=== PATIENT | female | born 1985 | race Caucasian/White ===

== ENCOUNTER 2016-04-26 16:12 | Emergency (ER) | payer OTHER, BC ==
[2016-04-26] MEDS ORDERED: Silver Sulfadiazine 1% Crm 50 GM Tube TOP ONE (16:29)
[2016-04-26 16:32] VITALS: BP 117/71
--- NOTE | 2016-04-26 16:32 | EDM.PDOC ---
ED HPI BURN/SMOKE INHALATION - General Chief Complaint: Burn Stated Complaint: SMITH TO FINGERS / WORKERS COMP Time Seen by Provider: 04/26/16 16:25 Source of Information: Reports: Patient History Limitations: Reports: No limitations - History of Present Illness INITIAL COMMENTS - FREE TEXT/NARRATIVE: This 30 yo female patient reports to the ED with smith to her right and left hands. The patient reports she was working with a hot glue gun when the object she was gluing let go and got glued to her hand. The patient attempted to get into the clinic, but was advised to come to the ED. Symptom Onset Date: 04/26/16 Timing/Duration: Reports: Constant Location, General: Reports: upper extremity, left, upper extremity, right Place of Occurrence: work Quality: Reports: Ache, Burning Severity: mild Improves with: Reports: None Worsens with: Reports: None Context, Burn/Smoke Inhalation: Reports: other (hot glue) Smoke Inhalation: Reports: none Associated Symptoms: Reports: no other symptoms - Related Data Allergies/ADRs: Allergies Allergy/AdvReac Type Severity Reaction Status Date / Time No Known Allergies Allergy Verified 04/18/15 15:07 Home Meds: Home Meds Loratadine [Claritin] 10 mg PO DAILY PRN 08/14/13 [History] SUMAtriptan Succinate [Imitrex] 25 mg PO ASDIRECTED PRN 08/14/13 [History] Ibuprofen [Motrin] 800 mg PO Q8H PRN #30 tablet 04/21/15 [Rx] Norethindrone [April] 1 tab PO ASDIRECTED 04/26/16 [History] Past Medical History HEENT History: Reports: Impaired vision Respiratory History: Reports: Asthma 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 ED EXAM, BURN/SMOKE INHALATION - Physical Exam Exam: See Below Exam Limited By: No limitations General Appearance: alert, WD/WN, mild distress Eye Exam: bilateral eye: EOMI, normal inspection, PERRL Ears (Abbreviated): normal external exam, normal canal, hearing grossly normal, normal TMs Nose: left anterior: normal inspection, normal mucosa, no blood, left posterior : normal inspection, normal mucosa, no blood, right anterior: normal inspection , normal mucosa, no blood, right posterior: normal inspection, normal mucosa, no blood Mouth/Throat: No symptoms reported Head: no symptoms Neck: no symptoms Respiratory: no respiratory distress, lungs clear, normal breath sounds, no accessory muscle use, chest non-tender Cardiovascular: normal peripheral pulses, regular rate, rhythm, no edema, no gallop, no JVD, no murmur, no rub GI/Abdominal: normal bowel sounds, soft, non tender, no organomegaly, no distention, no abnormal bruit, no mass (Female) Exam: Deferred Rectal Exam: Deferred Back Exam: normal inspection, full range of motion, NT Extremities: normal range of motion, no pedal edema Neurological: alert, oriented, CN II-XII intact, normal cognition, normal gait, normal reflexes, no motor/sensory deficits Psychiatric: normal affect, normal mood Skin Exam: Warm, Dry, Other (the pateint has a partial thickness burn to her left 2nd finger, her right 1st and right 2nd fingers. ) Lymphatic: no adenopathy Course - Vital Signs Last Recorded V/S: Last Vital Signs Temp 36.3 C 04/26/16 16:18 Pulse 80 04/26/16 16:18 Resp 16 04/26/16 16:18 BP 117/71 04/26/16 16:18 Pulse Ox 99 04/26/16 16:18 - Orders/Labs/Meds Meds: Medications Discontinued Medications Generic Name Dose Route Start Last Admin Trade Name Freq PRN Reason Stop Dose Admin Silver Sulfadiazine 1 gm 04/26/16 16:29 Silvadene 1% Cream 50 Gm TOP 04/26/16 16:30 ONETIME ONE Departure - Departure Time of Disposition: 16:30 Disposition: Home, Self-Care 01 Condition: fair Clinical Impression: Partial thickness burn of finger of right hand, Partial thickness burn of left hand Instructions: Burn Care, [facility] Forms: ED Department Discharge Care Plan Goals: The patient was advised of the examination results during the visit. The patient was given Silvadene Cream (1%) to apply to the burn areas 3 times per day. If the patient has any additional symptoms or concerns, the patient should follow-up with her primary care facility or return to the emergency department.
== END 2016-04-26 16:45 | disposition home or self-care (01) ==
LOC: EEVIPCON 16:12 → DL.ED 16:12
DX: T23.022A Burn of unspecified degree of single left finger (nail) except thumb, initial encounter (principal); T23.031A Burn of unspecified degree of multiple right fingers (nail), not including thumb, initial encounter; J45.909 Unspecified asthma, uncomplicated; G43.909 Migraine, unspecified, not intractable, without status migrainosus; D64.9 Anemia, unspecified; X12.XXXA Contact with other hot fluids, initial encounter; Z79.899 Other long term (current) drug therapy; Y99.0 Civilian activity done for income or pay
CPT/HCPCS: 99283; A9270

== ENCOUNTER 2018-07-28 08:48 | Outpatient (CLI) | payer OTHER | END 2018-07-28 09:15 | disposition home or self-care (01) | LOC: DL.OBCHECK 08:48 | DX: O24.419 Gestational diabetes mellitus in pregnancy, unspecified control (principal) | CPT/HCPCS: 59025 ==

== ENCOUNTER 2019-10-08 22:10 | Emergency (ER) | payer OTHER ==
[2019-10-08 22:18] VITALS: BP 135/95; PULSE 95
--- NOTE | 2019-10-08 22:39 | EDM.PDOC ---
ED HPI GENERAL MEDICAL PROBLEM - General Chief Complaint: Back Pain or Injury Stated Complaint: SEVERE PAIN IN LOWERLEFTBACKINTOABDMARIELLA,[id number] Time Seen by Provider: 10/08/19 22:39 Source of Information: Reports: Patient, RN, RN Notes Reviewed History Limitations: Reports: No Limitations - History of Present Illness INITIAL COMMENTS - FREE TEXT/NARRATIVE: Patient presents to ER with complaint of left lower back/flank pain that wraps around to the abdomen. Patient states this radiates down into the buttocks from time to time. Patient states she feels as though she needs to have a bowel movement sometimes. States last bowel movement was today and was soft. Patient states LMP was September 24. States yesterday she began to have vaginal bleeding. Patient states she took a test which was positive. States she saw her primary care provider in the clinic today who did a vaginal exam as well as a bedside ultrasound. Patient states she does not think there was a uterine sac at that time. Patient also recently changed control pills from an all progesterone pill to a combination pill. Patient states the cramping has progressively gotten worse today. Has been using Tylenol and ibuprofen. Last ibuprofen was at 1600 today. Patient denies fever or chills. States she has felt nauseated and vomited today. Denies any urinary symptoms, frequency, urgency, burning with urination. 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 Left Lower Back Pain Score (Numeric/FACES): 8 - Related Data Allergies Allergy/AdvReac Type Severity Reaction Status Date / Time No Known Allergies Allergy Verified 10/08/19 22:52 Home Meds: Home Meds Ferrous Sulfate 325 mg PO DAILY 07/18/18 [History] Vit/FA/Fe Fumarate/Se [ MTR] 1 tab PO DAILY 07/18/18 [History] Acetaminophen [Tylenol] 650 mg PO Q4H PRN tablet 08/13/18 [Rx] Docusate Sodium [Colace] 100 mg PO BID PRN cap 08/13/18 [Rx] Ferrous Sulfate 325 mg PO WITHBREAKFAST tablet 08/13/18 [Rx] Ibuprofen [Motrin] 800 mg PO Q8H PRN tablet 08/13/18 [Rx] Vit with Ca/FA/Iron [ Plus Iron] 1 each PO DAILY tablet 08/13/18 [Rx] Past Medical History HEENT History: Reports: None, Impaired Vision Cardiovascular History: Reports: None Respiratory History: Reports: Asthma Gastrointestinal History: Reports: None Genitourinary History: Reports: None 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: , 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: hx gest DM with first Musculoskeletal History: Reports: None Neurological History: Reports: Migraines Psychiatric History: Reports: None Endocrine/Metabolic History: Reports: Diabetes, Gestational Other Endocrine/Metabolic History: Insulin dependent, 7uNPH q PM Hematologic History: Reports: Anemia Immunologic History: Reports: None Oncologic (Cancer) History: Reports: None Dermatologic History: Reports: None - Infectious Disease History Infectious Disease History: Reports: None - Past Surgical History Head Surgeries/Procedures: Reports: None HEENT Surgical History: Reports: None Social & Family History - Family History Family Medical History: Noncontributory - Tobacco Use Smoking Status *Q: Never Smoker - Caffeine Use Caffeine Use: Reports: None - Recreational Drug Use Recreational Drug Use: No ED ROS GENERAL - Review of Systems Review Of Systems: Comprehensive ROS is negative, except as noted in HPI. ED EXAM, RENAL/ - Physical Exam Exam: See Below Exam Limited By: No Limitations General Appearance: Alert, WD/WN, Mild Distress Eye Exam: Bilateral Eye: EOMI, Normal Inspection Ears: Normal External Exam, Hearing Grossly Normal Nose: Normal Inspection Throat/Mouth: Normal Inspection, Normal Voice, No Airway Compromise Head: Atraumatic, Normocephalic Neck: Normal Inspection, Supple, Non-Tender, Full Range of Motion Respiratory/Chest: No Respiratory Distress, Lungs Clear, Normal Breath Sounds, No Accessory Muscle Use, Chest Non-Tender Cardiovascular: Normal Peripheral Pulses, Regular Rate, Rhythm, No Edema, No Gallop, No JVD, No Murmur, No Rub GI/Abdominal: Normal Bowel Sounds, Soft, No Organomegaly, No Distention, No Abnormal Bruit, No Mass, Pelvis Stable, Tender (LLQ) (Female) Exam: Deferred Rectal (Female) Exam: Deferred Back Exam: Normal Inspection, Full Range of Motion, CVA Tenderness (L) Extremities: Normal Inspection, Normal Range of Motion, Non-Tender, Normal Capillary Refill, No Pedal Edema Neurological: Alert, Oriented, CN II-XII Intact, Normal Cognition, Normal Gait, Normal Reflexes, No Motor/Sensory Deficits Psychiatric: Normal Affect, Normal Mood Skin Exam: Warm, Dry, Intact, Normal Color, No Rash Lymphatic: No Adenopathy Course - Vital Signs Last Recorded V/S: Last Vital Signs Temp 98.4 F 10/08/19 22:17 Pulse 95 10/08/19 22:17 Resp 19 10/08/19 22:17 BP 135/95 H 10/08/19 22:17 Pulse Ox 99 10/08/19 22:17 - Orders/Labs/Meds Orders: Active Orders 24 hr Category Date Time Status OB Ltd 1 or More Fetus [US] Urgent Exams 10/08/19 23:33 Taken OB Transvaginal [US] Routine Exams 10/09/19 Taken Labs: Laboratory Tests 10/08/19 10/08/19 10/08/19 Range/Units 22:29 22:29 22:32 WBC 9.7 (5.0-10.0) 10^3/uL RBC 4.10 L (4.2-5.4) 10^6/uL Hgb 12.3 D (12.0-16.0) g/dL Hct 37.4 (37.0-47.0) % MCV 91.2 (80-100) fL MCH 30.0 (27.0-34.0) pg MCHC 32.9 L (33.0-35.0) g/dL Plt Count 272 D (150-450) 10^3/uL Neut % (Auto) 56.3 (42.2-75.2) % Lymph % (Auto) 33.6 (20.5-50.1) % [place] % (Auto) 7.1 (2-8) % Eos % (Auto) 2.6 (1.0-3.0) % Baso % (Auto) 0.4 (0.0-1.0) % Sodium (136-145) mmol/L Potassium (3.5-5.1) mmol/L Chloride (98-107) mmol/L Carbon Dioxide (21-32) mmol/L Anion Gap (7-13) mEq/L BUN (7-18) mg/dL Creatinine (0.55-1.02) mg/dL Est Cr Clr Drug Dosing mL/min Estimated GFR (MDRD) BUN/Creatinine Ratio (No establ ref range) Glucose (74-99) mg/dL Calcium (8.5-10.1) mg/dL Total Bilirubin (0.2-1.0) mg/dL AST (15-37) U/L ALT (14-59) U/L Alkaline Phosphatase (46-116) U/L Total Protein (6.4-8.2) g/dL Albumin (3.4-5.0) g/dL Globulin Albumin/Globulin Ratio HCG, Quant (0-6) mIU/mL Urine Color Light yellow (YELLOW) Urine Appearance Slightly cloudy (CLEAR) Urine pH 7.0 (5.0-9.0) Ur Specific [place] 1.025 (1.005-1.030) Urine Protein Negative (NEGATIVE) Urine Glucose (UA) Negative (NEGATIVE) Urine Ketones Negative (NEGATIVE) Urine Occult Blood Large H (NEGATIVE) Urine Nitrite Negative (NEGATIVE) Urine Bilirubin Negative (NEGATIVE) Urine Urobilinogen 0.2 (0.2-1.0) mg/dL Ur Leukocyte Esterase Negative (NEGATIVE) Urine RBC 50-75 H /HPF Urine WBC 0-5 (0-5/HPF) /HPF Ur Epithelial Cells Few (NOT SEEN) /HPF Amorphous Sediment Few (NOT SEEN) /HPF Urine Bacteria Few (0-FEW/HPF) /HPF Urine Mucus Rare (NOT SEEN) /LPF Urine HCG, Qual Positive 10/08/19 10/08/19 Range/Units 22:32 22:32 WBC (5.0-10.0) 10^3/uL RBC (4.2-5.4) 10^6/uL Hgb (12.0-16.0) g/dL Hct (37.0-47.0) % MCV (80-100) fL MCH (27.0-34.0) pg MCHC (33.0-35.0) g/dL Plt Count (150-450) 10^3/uL Neut % (Auto) (42.2-75.2) % Lymph % (Auto) (20.5-50.1) % [place] % (Auto) (2-8) % Eos % (Auto) (1.0-3.0) % Baso % (Auto) (0.0-1.0) % Sodium 141 (136-145) mmol/L Potassium 3.8 (3.5-5.1) mmol/L Chloride 105 (98-107) mmol/L Carbon Dioxide 25 (21-32) mmol/L Anion Gap 14.8 H (7-13) mEq/L BUN 12 (7-18) mg/dL Creatinine 0.75 (0.55-1.02) mg/dL Est Cr Clr Drug Dosing 92.13 mL/min Estimated GFR (MDRD) > 60 BUN/Creatinine Ratio 16.0 (No establ ref range) Glucose 117 H (74-99) mg/dL Calcium 9.0 (8.5-10.1) mg/dL Total Bilirubin 0.3 (0.2-1.0) mg/dL AST 18 (15-37) U/L ALT 29 (14-59) U/L Alkaline Phosphatase 65 (46-116) U/L Total Protein 7.4 (6.4-8.2) g/dL Albumin 3.8 (3.4-5.0) g/dL Globulin 3.6 Albumin/Globulin Ratio 1.1 HCG, Quant 840 H (0-6) mIU/mL Urine Color (YELLOW) Urine Appearance (CLEAR) Urine pH (5.0-9.0) Ur Specific [place] (1.005-1.030) Urine Protein (NEGATIVE) Urine Glucose (UA) (NEGATIVE) Urine Ketones (NEGATIVE) Urine Occult Blood (NEGATIVE) Urine Nitrite (NEGATIVE) Urine Bilirubin (NEGATIVE) Urine Urobilinogen (0.2-1.0) mg/dL Ur Leukocyte Esterase (NEGATIVE) Urine RBC /HPF Urine WBC (0-5/HPF) /HPF Ur Epithelial Cells (NOT SEEN) /HPF Amorphous Sediment (NOT SEEN) /HPF Urine Bacteria (0-FEW/HPF) /HPF Urine Mucus (NOT SEEN) /LPF Urine HCG, Qual Meds: Medications Discontinued Medications Generic Name Dose Route Start Last Admin Trade Name Freq PRN Reason Stop Dose Admin Acetaminophen 650 mg 10/09/19 00:42 10/09/19 01:01 Tylenol PO 10/09/19 00:43 650 mg NOW ONE Administration Ibuprofen 800 mg 10/08/19 22:45 10/08/19 22:53 Motrin PO 10/08/19 22:46 800 mg ONETIME ONE Administration - Radiology Interpretation Free Text/Narrative:: OB US: PROCEDURE INFORMATION: Exam: US First Trimester, Transabdominal and US , Transvaginal Exam date and time: 10/09/2019 12:07 AM Age: 34 years old Clinical indication: complicated by abdominal or pelvic pain; Lower; First trimester; Gestational age or lmp: 2w 0d; ; Patient HX: Hcg 840; Additional info: Left adnexal pain R/O ectopic TECHNIQUE: Imaging protocol: Real-time transabdominal obstetrical ultrasound of the maternal pelvis and a first trimester , less than 14 weeks 0 days, with image documentation. Transvaginal imaging was used for better evaluation of the fetus and adnexa. COMPARISON: No relevant prior studies available. FINDINGS: Gestation: Gestational sac within the uterus. Within the gestational sac, no pole or yolk sac. BIOMETRY: Gestational age (AUA): Mean sac diameter correlates with a gestational age of 5 weeks 1 day. MATERNAL: Uterus: Uterus is normal in size and echogenicity. No myometrial mass. Its dimensions are 8.2 x 4 x 3.3 cm. Cervix: Unremarkable. Right adnexa: Right ovary is seen. Blood flow is present. No suspicious mass. The right ovary measures 3 x 3.6 x 2.6 cm. Dominant follicle is present. Left adnexa: Left ovary is seen. Blood flow is present. There is probably an involuting corpus luteum cyst. No suspicious mass. Left ovary measures 3 x 3 x 2 cm Intraperitoneal space: No free fluid. IMPRESSION: 1. Gestational sac within the uterus. Appearance consistent with early intrauterine . 2. Mean sac diameter correlates with a gestational age of 5 weeks 1 day. Thank you for allowing us to participate in the care of your patient. Dictated and Authenticated by: Eddy Rodrigues MD 10/09/2019 1:01 AM Central Time ([place] & [place]) Departure - Departure Time of Disposition: 01:13 Disposition: Home, Self-Care 01 Condition: Fair Clinical Impression: Threatened , Abdominal cramping - Discharge Information *PRESCRIPTION DRUG MONITORING PROGRAM REVIEWED*: No *COPY OF PRESCRIPTION DRUG MONITORING REPORT IN PATIENT GIOVANI: No Instructions: Threatened Miscarriage, [id number], Vaginal Bleeding During , First Trimester, [id number] Forms: ED Department Discharge Additional Instructions: Follow-up with Dr. Walls tomorrow regarding the cramping pain May use heat to the back and abdomen as tolerated May use Tylenol as directed for pain Drink plenty of water Sepsis Event Note (ED) - Evaluation Sepsis Screening Result: No Definite Risk - Focused Exam Vital Signs: Vital Signs Temp Pulse Resp BP Pulse Ox 10/08/19 22:17 98.4 F 95 19 135/95 H 99 - My Orders Last 24 Hours: My Active Orders 10/08/19 23:33 OB Ltd 1 or More Fetus [US] Urgent 10/09/19 OB Transvaginal [US] Routine - Assessment/Plan Last 24 Hours: My Active Orders 10/08/19 23:33 OB Ltd 1 or More Fetus [US] Urgent 10/09/19 OB Transvaginal [US] Routine
[2019-10-08] MEDS ORDERED: Ibuprofen 800 MG Tab PO ONE (22:45)
[2019-10-08 23:13] LABS: CHLORIDE,CL 105 mmol/L (98-107); SODIUM,NA 141 mmol/L (136-145)
[2019-10-08 23:14] LABS: ANION GAP 14.8 mEq/L (7-13)
[2019-10-09] MEDS ORDERED: Acetaminophen 325 MG Tab PO ONE (00:42)
--- NOTE | 2019-10-09 07:02 | US ---
PROCEDURE INFORMATION: Exam: US First Trimester, Transabdominal and US , Transvaginal Exam date and time: 10/09/2019 12:07 AM Age: 34 years old Clinical indication: complicated by abdominal or pelvic pain; Lower; First trimester; Gestational age or lmp: 2w 0d; ; Patient HX: Hcg 840; Additional info: Left adnexal pain R/O ectopic TECHNIQUE: Imaging protocol: Real-time transabdominal obstetrical ultrasound of the maternal pelvis and a first trimester , less than 14 weeks 0 days, with image documentation. Transvaginal imaging was used for better evaluation of the fetus and adnexa. COMPARISON: No relevant prior studies available. FINDINGS: Gestation: Gestational sac within the uterus. Within the gestational sac, no pole or yolk sac. BIOMETRY: Gestational age (AUA): Mean sac diameter correlates with a gestational age of 5 weeks 1 day. MATERNAL: Uterus: Uterus is normal in size and echogenicity. No myometrial mass. Its dimensions are 8.2 x 4 x 3.3 cm. Cervix: Unremarkable. Right adnexa: Right ovary is seen. Blood flow is present. No suspicious mass. The right ovary measures 3 x 3.6 x 2.6 cm. Dominant follicle is present. Left adnexa: Left ovary is seen. Blood flow is present. There is probably an involuting corpus luteum cyst. No suspicious mass. Left ovary measures 3 x 3 x 2 cm Intraperitoneal space: No free fluid. IMPRESSION: 1. Gestational sac within the uterus. Appearance consistent with early intrauterine . 2. Mean sac diameter correlates with a gestational age of 5 weeks 1 day.
== END 2019-10-09 01:17 | disposition home or self-care (01) ==
LOC: DL.ED 22:10
DX: O20.0 Threatened abortion (principal); O99.511 Diseases of the respiratory system complicating pregnancy, first trimester; J45.909 Unspecified asthma, uncomplicated; Z79.899 Other long term (current) drug therapy
CPT/HCPCS: 36415; 76815; 76817; 80053; 81001; 81025; 84702; 85025; 99284-25; A9270-GY